=== PATIENT | female | born 1995 | race Caucasian/White ===

== ENCOUNTER 2018-05-30 01:56 | Emergency (ER) | payer OTHER ==
[2018-05-30] MEDS ORDERED: IBUPROFEN 600 MG TAB PO ONE ×2 (02:08→02:10)
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
[2018-05-30 03:12] VITALS: BP 133/70
== END 2018-05-30 03:20 | disposition home or self-care (01) ==
DX: S09.93XA Unspecified injury of face, initial encounter (principal); S00.83XA Contusion of other part of head, initial encounter; W19.XXXA Unspecified fall, initial encounter; W22.09XA Striking against other stationary object, initial encounter